=== PATIENT | female | born 1985 ===

== ENCOUNTER 2017-07-24 20:28 | Emergency (ER) | payer OTHER ==
[~2017-07-24] VITALS: Ht 152.4 cm; Wt 46.3 kg
[~2017-07-24 20:28] MED LIST: GENERLAC PO; INTESTINEX680 MG PO; LEVSIN/SL0.125 MG SL; ZANTAC150 MG PO; ZOFRAN8 MG PO
[2017-07-25] MEDS ORDERED: ZITHROMAX500 MG PO (05:06)
[2017-07-25] MEDS ORDERED: ULTRACET PO (05:06)
== END 2017-07-25 06:18 | disposition home or self-care (01) ==
LOC: ER 20:28
DX: B34.9 Viral infection, unspecified (principal); J35.01 Chronic tonsillitis

== ENCOUNTER 2017-09-06 18:22 | Emergency (ER) | payer OTHER ==
[~2017-09-06] VITALS: Ht 157.5 cm; Wt 49.9 kg
[~2017-09-06 18:22] MED LIST changes: +ULTRACET PO; +ZITHROMAX500 MG PO
== END 2017-09-06 22:38 | disposition home or self-care (01) ==
LOC: ER 18:22
DX: M62.838 Other muscle spasm (principal); J06.9 Acute upper respiratory infection, unspecified; M54.2 Cervicalgia; D69.8 Other specified hemorrhagic conditions

== ENCOUNTER 2017-09-16 20:00 | Emergency (ER) | payer OTHER ==
[~2017-09-16] VITALS: Ht 157.5 cm; Wt 49.9 kg
== END 2017-09-16 21:32 | disposition home or self-care (01) ==
LOC: ER 20:00
DX: J02.8 Acute pharyngitis due to other specified organisms (principal); R07.89 Other chest pain

== ENCOUNTER 2017-11-27 11:05 | Emergency (ER) | payer OTHER ==
[~2017-11-27] VITALS: Ht 157.5 cm; Wt 52.2 kg
== END 2017-11-27 18:49 | disposition home or self-care (01) ==
LOC: ER 11:05
DX: K29.70 Gastritis, unspecified, without bleeding (principal)

== ENCOUNTER 2017-12-27 13:46 | Emergency (ER) | payer OTHER ==
[~2017-12-27] VITALS: Ht 157.5 cm; Wt 52.2 kg
== END 2017-12-27 18:32 | disposition home or self-care (01) ==
LOC: ER
DX: N93.8 Other specified abnormal uterine and vaginal bleeding (principal)

== ENCOUNTER 2018-06-08 18:33 | Emergency (ER) | payer OTHER ==
[~2018-06-08] VITALS: Ht 157.5 cm; Wt 52.2 kg
== END 2018-06-09 00:50 | disposition home or self-care (01) ==
LOC: ER 18:33
DX: M65.241 Calcific tendinitis, right hand (principal)

== ENCOUNTER 2018-06-20 14:27 | Emergency (ER) | payer OTHER ==
[~2018-06-20] VITALS: Ht 162.6 cm; Wt 63.5 kg
== END 2018-06-20 21:03 | disposition home or self-care (01) ==
LOC: ER 14:27
DX: B34.9 Viral infection, unspecified (principal); K52.9 Noninfective gastroenteritis and colitis, unspecified

== ENCOUNTER 2018-07-06 12:12 | Outpatient (CLI) | payer OTHER | END 2018-07-06 12:17 | disposition home or self-care (01) | LOC: SONOGRAMA 12:12 → MAMO-SONO 12:15 → SONOGRAMA 12:17 | DX: R10.2 Pelvic and perineal pain (principal); N60.11 Diffuse cystic mastopathy of right breast ==

== ENCOUNTER 2018-08-08 16:54 | Emergency (ER) | payer OTHER ==
[~2018-08-08] VITALS: Ht 157.5 cm; Wt 52.2 kg
== END 2018-08-08 21:17 | disposition home or self-care (01) ==
LOC: ER 16:54
DX: M94.0 Chondrocostal junction syndrome [Tietze] (principal); M54.2 Cervicalgia

== ENCOUNTER 2019-03-27 19:16 | Emergency (ER) | payer OTHER ==
[~2019-03-27] VITALS: Ht 157.5 cm; Wt 59.0 kg
[2019-03-28] MEDS ORDERED: INTESTINEX680 M1 PO (02:53)
[2019-03-28] MEDS ORDERED: LEVSIN/SL0.125 MG SL (02:53)
[2019-03-28] MEDS ORDERED: CEFUROXIME500 MG PO (02:53)
== END 2019-03-28 03:01 | disposition home or self-care (01) ==
LOC: ER 19:16
DX: R10.2 Pelvic and perineal pain (principal)

== ENCOUNTER → 2020-05-06 | Outpatient (CLI) | payer OTHER ==
[~2020-05-06] MED LIST changes: +CEFUROXIME500 MG PO; +INTESTINEX680 M1 PO
== END | disposition home or self-care (01) ==
LOC: NST 14:27
PROVIDERS: ATTEND Obstetrics & Gynecology
DX: Z34.83 Encounter for supervision of other normal pregnancy, third trimester (principal)